=== PATIENT | female | born 1965 | race Caucasian/White ===

== ENCOUNTER 2019-05-01 19:09 | Observation (INO) ==
[2019-05-01] MEDS ORDERED: 0.9 % Sodium Chloride 500 ML IVC ONE (19:29)
[2019-05-01] MEDS ORDERED: Isovue-370 500 ML BOTTLE IVP ONE (19:29)
[2019-05-01 20:20] LABS: Bilirubin,Urine Negative (Negative); Blood,Urine Negative (Negative); Clarity,Urine Clear (Clear); Color,Urine Yellow (Yellow); Glucose,Urine (UA) Normal (Normal); Ketones,Urine Negative (Negative); Leukocyte Esterase,Urine Negative (Negative); Nitrite,Urine Negative (Negative); Protein,Urine Negative (Neg-Trace); Specific Gravity,Urine 1.027 (1.010-1.025); Urobilinogen,Urine Normal (Normal)
[2019-05-01 20:24] LABS: Basophils % 0.2 %; Eosinophils # 0.1 K/mcL (0.0-0.6); Eosinophils % 1.2 %; Hemoglobin 12.2 g/dL (11.5-15.4); Immature Granulocytes % 0.5 % (0-4); Lymphocytes # 1.9 K/mcL (0.6-4.6); Lymphocytes % 33.1 %; Mean Corpuscular Hemoglobin 29.8 pg (28.0-33.3); Mean Corpuscular Volume 90.5 fL (83.0-100.0); Mean Platelet Volume 8.7 fL (9.4-12.4); Monocytes # 0.4 K/mcL (0.0-1.3); Monocytes % 7.4 %; Neutrophils # 3.3 K/mcL (1.6-8.9); Platelet Count 233 K/mcL (140-400); Red Blood Count 4.09 M/mcL (3.82-4.97); Red Cell Distribution Width 13.4 % (11.5-14.5); Segmented Neutrophils % 57.6 %; White Blood Count 5.7 K/mcL (4.3-11.1)
[2019-05-01 20:32] LABS: Prothrombin Time 11.4 Seconds (9.4-12.1)
[2019-05-01 20:35] LABS: Activated Partial Thrombo Time 30.1 Seconds (26.0-36.0)
[2019-05-01 20:43] LABS: BUN/Creatinine Ratio 25 (6-26); Blood Urea Nitrogen 17 mg/dL (6-20); Calcium 8.7 mg/dL (8.6-10.3); Carbon Dioxide 24 mEq/L (23-29); Chloride 108 mEq/L (98-107); Glucose 93 mg/dL (70-105); Osmolality,Calculated 295 (280-300); Potassium 3.4 mEq/L (3.5-5.1); Sodium 142 mEq/L (136-145); eGFR For African Americans > 60 (> 60); eGFR For Non-African Americans > 60 (> 60)
[2019-05-01 20:45] LABS: Troponin I < 0.03 ng/mL (< 0.04)
[2019-05-01] MEDS ORDERED: Ipratropium/Albuterol Neb 3 ML IH ONE (21:58)
[2019-05-01] MEDS ORDERED: Ondansetron ODT 4 MG TAB.RAPDIS SL PRN (23:34)
[2019-05-01] MEDS ORDERED: Naloxone 0.4 MG/ML INJ IVP PRN ×2 (23:34→23:36)
[2019-05-01] MEDS: Benzonatate 100 MG CAPSULE PO SCH (23:53)
[2019-05-02 00:43] LABS: Basophils % 0.2 %; Eosinophils # 0.1 K/mcL (0.0-0.6); Eosinophils % 1.3 %; Hematocrit 35.1 % (35.3-44.9); Hemoglobin 11.3 g/dL (11.5-15.4); Immature Granulocytes % 0.4 % (0-4); Lymphocytes # 1.7 K/mcL (0.6-4.6); Mean Corpuscular HGB Conc 32.2 g/dL (31.6-35.5); Mean Corpuscular Hemoglobin 29.5 pg (28.0-33.3); Mean Corpuscular Volume 91.6 fL (83.0-100.0); Mean Platelet Volume 8.9 fL (9.4-12.4); Monocytes # 0.3 K/mcL (0.0-1.3); Monocytes % 6.3 %; Neutrophils # 2.5 K/mcL (1.6-8.9); Platelet Count 208 K/mcL (140-400); Red Blood Count 3.83 M/mcL (3.82-4.97); Red Cell Distribution Width 13.4 % (11.5-14.5); Segmented Neutrophils % 54.8 %; White Blood Count 4.6 K/mcL (4.3-11.1)
[2019-05-02 01:02] LABS: ABG Base Excess 1 mEq/L (-2 to 3); ABG HCO3 25 mEq/L (21-27); ABG Oxygen Saturation 98 % (95-98); ABG PCO2 35 mmHg (35-45); ABG PH 7.45 pH Units (7.32-7.45); ABG PO2 96 mmHg (85-104); ABG TCO2 26 mEq/L (20-26)
[2019-05-02 01:08] LABS: Alanine Aminotransferase 38 Units/L (7-52); Albumin 3.5 g/dL (3.5-5.7); Albumin/Globulin Ratio 1.5 (1.1-2.2); Alkaline Phosphatase 85 Units/L (34-104); Aspartate Amino Transferase 24 Units/L (13-39); BUN/Creatinine Ratio 24 (6-26); Bilirubin,Total 0.5 mg/dL (0.3-1.0); Blood Urea Nitrogen 15 mg/dL (6-20); Calcium 8.3 mg/dL (8.6-10.3); Carbon Dioxide 25 mEq/L (23-29); Chloride 109 mEq/L (98-107); Chol/HDL Ratio 3.6 (0-4.9); Cholesterol 132 mg/dL (< 200); Globulin 2.4 g/dL (2.4-3.5); Glucose 96 mg/dL (70-105); HDL Cholesterol 37 mg/dL (40-59); LDL Cholesterol,Calculated 77 mg/dL (0-99); Magnesium 1.8 mg/dL (1.6-2.6); Osmolality,Calculated 295 (280-300); Phosphorous 3.2 mg/dL (2.7-4.5); Potassium 3.3 mEq/L (3.5-5.1); Sodium 142 mEq/L (136-145); Total Protein 5.9 g/dL (6.4-8.9); Triglycerides 91 mg/dL (< 150); eGFR For African Americans > 60 (> 60); eGFR For Non-African Americans > 60 (> 60)
[2019-05-02 01:21] LABS: Adenovirus Not Detected (Not Detect); Coronavirus 229E Not Detected (Not Detect); Coronavirus HKU1 Not Detected (Not Detect); Coronavirus NL63 Not Detected (Not Detect); Coronavirus OC43 Not Detected (Not Detect); Human Metapneumovirus Not Detected (Not Detect); Human Rhinovirus/Enterovirus Not Detected (Not Detect); Influenza A Subtype 2009 H1 Not Detected (Not Detect); Parainfluenza Virus 1 Not Detected (Not Detect); Parainfluenza Virus 2 Not Detected (Not Detect); Parainfluenza Virus 3 Not Detected (Not Detect); Parainfluenza Virus 4 Not Detected (Not Detect); Respiratory Syncytial Virus Not Detected (Not Detect)
[2019-05-02 01:22] LABS: Bordetella Pertussis Not Detected (Not Detect); Chlamydophila pneumoniae Not Detected (Not Detect); Mycoplasma pneumoniae Not Detected (Not Detect)
[2019-05-02 01:23] LABS: Influenza B DETECTED (Not Detect)
[2019-05-02] MEDS ORDERED: Potassium Chloride Elixir 20 MEQ/15 ML UDC PO ONE (01:24)
[2019-05-02] MEDS ORDERED: Ketorolac 30 MG/ML VIAL IM ONE (04:14)
[2019-05-02] MEDS ORDERED: Ipratropium/Albuterol Neb 3 ML IH PRN (08:40)
[2019-05-02] MEDS ORDERED: Ketorolac 30 MG/ML VIAL IVP STA (09:44)
[2019-05-02] MEDS: Benzonatate 100 MG CAPSULE PO SCH (10:04)
[2019-05-02 11:21] VITALS: BP 118/74
[2019-05-02] MEDS ORDERED: *HR* Heparin 5,000 UNIT/ML VIAL SQ SCH (18:00)
== END 2019-05-02 12:36 | disposition home or self-care (01) ==
LOC: 3BNU 19:09 → EMEROOARM 19:09 → SUATTDRO 21:58 → 3BNU 22:49
PROVIDERS: ADMIT Internal Medicine; ATTEND Internal Medicine